=== PATIENT | female | born 1965 | race Caucasian/White ===

== ENCOUNTER 2024-03-02 09:51 | Emergency (ER) | payer BC, SELFPAY ==
[2024-03-02 09:55] VITALS: BP 111/81; PULSE 99; RESP 18; TEMP 38.9; O2SAT 94; BMI 23.9
--- NOTE | 2024-03-02 10:08 | ED.GENADULT ---
HPI - General Adult General Time Seen by Provider: 10:08 Date Seen: 03/02/24 Chief complaint: Cough Stated complaint: tired, cough, congestion Time Seen by Provider: 03/02/24 10:08 Source: patient Mode of arrival: ambulatory Limitations: no limitations History of Present Illness HPI narrative: Magali is a very pleasant 58-year-old female, daily tobacco user, history of hypertension rheumatoid arthritis currently on prednisone 5 mg daily who comes to the emergency room with fever and cough. Today is day 4 of cough like symptoms. Patient noted the onset of a cough which is continued associated with fever up to 102 at times. On day 1 of her illness she actually had some diarrhea overnight. That has since abated. She agrees that there may be some slight dysuria when she tries to urinate. She notes that she is prone to bronchitis and pneumonia a few times a year. She denies sore throat runny nose or unusual rash. She initially had some right ear pain and mild headache but this does not seem to be bothering her as much today. She feels that a nebulizer help somewhat at home. She does not know if the productive cough has colored sputum or not. Patient tried to go to work today but they sent her home. Related Data Home Medications ?Medication ?Instructions ?Recorded ?Confirmed albuterol sulfate 90 mcg/actuation 1 - 2 puff inhalation 03/02/24 aerosol inhaler cetirizine 10 mg tablet 10 mg PO DAILY 03/02/24 03/02/24 chlorthalidone 25 mg tablet 50 mg PO QAM 03/02/24 03/02/24 lisinopril 40 mg tablet 40 mg PO DAILY 03/02/24 03/02/24 loratadine 10 mg tablet 10 mg PO QPM 03/02/24 03/02/24 metoprolol succinate 100 mg PO 03/02/24 tablet,extended release 24 hr omeprazole 20 mg capsule,delayed 20 mg PO DAILY 03/02/24 03/02/24 release prednisone 1 mg tablet 1 mg PO DAILY 03/02/24 03/02/24 zolpidem 10 mg tablet 10 mg PO QPM 03/02/24 03/02/24 Allergies Allergy/AdvReac Type Severity Reaction Status Date / Time morphine Allergy Severe tachycardia Verified 03/02/24 09:58 naproxen Allergy Severe tachycardia Verified 03/02/24 09:58 Review of Systems Status of ROS: Reports: 10 or more systems reviewed and unremarkable except as noted in History and below Const: Reports: fever, chills and fatigue Eyes: Denies: change in vision or blurry vision ENMT: Denies: throat pain, neck pain, throat swelling, nasal discharge or nasal congestion Cardio: Denies: chest pain or shortness of breath with exertion Resp: Reports: cough and wheezing; Denies: shortness of breath GI: Reports: diarrhea; Denies: abdominal pain, nausea or vomiting : Reports: painful urination; Denies: urinary frequency or urinary urgency Musculo: Denies: back pain or neck pain Integ/Breast: Denies: rash Neuro: Reports: headache Endo: Reports: fatigue Allergy/Immuno: Reports: wheezing; Denies: throat swelling PFSH [facility] Social History Smoking Status: Former smoker Do you use any of these nicotine containing products: None Second hand tobacco smoke exposure: No How often do you have a drink containing alcohol: monthly or less How many standard drinks containing alcohol do you have on a typical day: 1 or 2 How often do you have six or more drinks on one occasion: Never AUDIT-C Alcohol total score: 1 Non-prescribed substance use: denies use Exam Narrative: Exam Narrative: Patient is alert and oriented. She is examined in room 2. She has a mask on. Her eyes are clear. Her TMs bilaterally without erythema. Removal of the mass shows no nasal drainage. Oral cavity with moist mucous membranes. No exudate in the posterior oropharynx. Neck is supple. Heart with a regular rate and rhythm. Lungs are with decreased breath sounds in the bases right greater than left. There is also wheezing right greater than left in the mid and upper aspects of the lungs. This is rather subtle. Abdomen is soft nontender. Lower extremities without edema and there is no swelling of the ankles. Moving all extremities. Nontoxic in appearance. Const: Vital Signs, click to edit/add: Vital Signs - 24 hr 03/02/24 09:55 Temperature 102.1 F H Pulse Rate [Pulse Oximeter] 99 Respiratory Rate 18 Blood Pressure [Ri ght Upper Arm] 111/81 Pulse Oximetry 94 Oxygen Delivery Me thod Room Air Documenting provider has reviewed patient's vital signs: yes Course Vital Signs Vital signs: Initial Vital Signs Temperature 102.1 F H 03/02/24 09:55 Temperature Source Temporal Artery Scan 03/02/24 09:55 Pulse Rate 99 03/02/24 09:55 Respiratory Rate 18 03/02/24 09:55 Blood Pressure 111/81 03/02/24 09:55 Blood Pressure Mean 91 03/02/24 09:55 Blood Pressure Position Sitting 03/02/24 09:55 Pulse Oximetry 94 03/02/24 09:55 Oxygen Delivery Method Room Air 03/02/24 09:55 Vital Signs Temperature 102.1 F H 03/02/24 09:55 Pulse Rate 99 03/02/24 09:55 Respiratory Rate 18 03/02/24 09:55 Blood Pressure 111/81 03/02/24 09:55 Pulse Oximetry 94 03/02/24 09:55 Oxygen Delivery Method Room Air 03/02/24 09:55 Temperature 102.1 F H 03/02/24 09:55 Pulse Rate 99 03/02/24 09:55 Respiratory Rate 18 03/02/24 09:55 Blood Pressure 111/81 03/02/24 09:55 Pulse Oximetry 94 03/02/24 09:55 Oxygen Delivery Method Room Air 03/02/24 09:55 Medical Decision Making MDM Narrative Medical decision making narrative: 1. Pneumonia-auscultatory findings as well as x-ray suggest pneumonia. Patient has tested negative for COVID influenza. Will treat with Augmentin 875 mg p.o. b.i.d. x7 days. Because she does have risk factor of tobacco use will add 2nd antibiotic Zithromax 500 mg today followed by 250 mg daily for 4 days. Have encouraged continued use of nebulizer or inhalers at home. Rest and push fluids. 2. Disposition-return for worsening symptom Lab Data Lab results reviewed: Yes I reviewed the patient's lab results Labs: Lab Results 03/02/24 Range/Units 10:07 SARS-CoV-2 (PCR) Negative SARS-CoV-2 (Negative) Influenza Type A (PCR) Negative PCR FLU A (Negative) Influenza Type B (PCR) Negative PCR FLU B (Negative) Imaging Data Chest x-ray: Attestation: I have reviewed the pertinent imaging results. My impression: By my read increased lung markings in the bases. Radiologist's impression: Top-normal size of the cardiomediastinal silhouette. Pulmonary vasculature is normal. Lungs are well inflated. Minimal airspace opacities at the right cardiophrenic angle and left lung base. No dense consolidation. No pleural effusion or pneumothorax. No acute osseous abnormality identified. Impression: Minimal bibasilar airspace opacities, which may represent atelectasis versus early/developing pneumonia. Recommend follow-up chest radiographs in 4-6 weeks to document resolution. Discharge Plan Discharge Clinical Impression: Pneumonia Patient Disposition: Home, Self-Care Condition: Unchanged Additional Instructions: Recommend Augmentin twice daily for 7 days. Zithromax will be daily for 5 days. Continue home nebulizers or inhalers. Seek medical attention for worsening symptoms and as needed. You are most likely contagious. Good handwashing and wear mask with others. Return to the emergency room as needed. Prescriptions: No Action cetirizine 10 mg tablet 10 mg PO DAILY metoprolol succinate 100 mg tablet extended release 24 hr PO chlorthalidone 25 mg tablet 50 mg PO QAM prednisone 1 mg tablet 1 mg PO DAILY omeprazole 20 mg capsule,delayed release(DR/EC) 20 mg PO DAILY zolpidem 10 mg tablet 10 mg PO QPM albuterol sulfate 90 mcg/actuation HFA aerosol inhaler 1 - 2 puff INHALATION lisinopril 40 mg tablet 40 mg PO DAILY loratadine 10 mg tablet 10 mg PO QPM Follow Up/Referrals: Provider,Not a Local [Primary Care Provider] - Stand Alone Forms: [employer] Info Instructions
--- NOTE | 2024-03-02 10:40 | CRLHL7_ITS ---
For Patients: As a result of the Century Cures Act, medical imaging exams and procedure reports are released immediately into your electronic medical record. You may view this report before your referring provider. If you have questions, please contact your health care provider. Indication: Cough, right-sided wheezing. Technique: One view(s) of the chest. Comparison: None available. Findings: Top-normal size of the cardiomediastinal silhouette. Pulmonary vasculature is normal. Lungs are well inflated. Minimal airspace opacities at the right cardiophrenic angle and left lung base. No dense consolidation. No pleural effusion or pneumothorax. No acute osseous abnormality identified. Impression: Minimal bibasilar airspace opacities, which may represent atelectasis versus early/developing pneumonia. Recommend follow-up chest radiographs in 4-6 weeks to document resolution. Dictated by Rosalba Jean Baptiste MD @ 03/02/2024 11:00:15 AM (Electronically Signed)
[2024-03-02 11:04] LABS: PCR FLU A Negative PCR FLU A (Negative); PCR FLU B Negative PCR FLU B (Negative); SARS PCR* Negative SARS-CoV-2 (Negative)
[2024-03-02 11:22] LABS: Appearance Urine Cloudy (Clear); Bilirubin Urine Negative (Negative); Blood Urine 2+ (Negative); Color Urine Yellow (Yellow); Glucose Urine Negative (Negative); Ketones Urine 1+ (Negative); Leukocyte Esterase Urine Trace (Negative); Nitrite Urine Positive (Negative); Protein Urine 1+ (Negative); Specific Gravity Urine 1.025 (1.000-1.030)
[2024-03-02 11:38] LABS: RBC Urine 0-2 (0-2); Squamous Epithelial Cell Urine Few (None-Few)
[2024-03-02 11:39] LABS: Bacteria Urine Many
== END 2024-03-02 12:00 | disposition home or self-care (01) ==
PROVIDERS: Emergency Provider Family Medicine
DX: R06.02 Shortness of breath (principal); E86.0 Dehydration
CPT/HCPCS: 71045; 81001; 87086; 87186; 87631; 99284

== ENCOUNTER 2024-03-04 12:11 | Inpatient (IN) | payer BC, SELFPAY ==
[2024-03-04] VITALS (22 sets, daily range): BP systolic 83–120; BP diastolic 57–80; PULSE 85–100; RESP 20–40; TEMP 36.9–38.3; O2SAT 90–97; BMI 23.9
--- NOTE | 2024-03-04 12:57 | CRLHL7_ITS ---
For Patients: As a result of the 21st Century Cures Act, medical imaging exams and procedure reports are released immediately into your electronic medical record. You may view this report before your referring provider. If you have questions, please contact your health care provider. Indication: COUGH, SOB, ABD PAIN, DIARRHEA Technique: CT of the chest, abdomen, and pelvis was obtained without intravenous contrast. Please note that all CT scans at this facility use dose modulation, iterative reconstruction, and/or weight-based dosing when appropriate to reduce radiation dose to as low as reasonably achievable. Comparison: Same day radiograph. Findings: CHEST: Medical devices: None. Thyroid: 0.8 centimeter hypoattenuating right thyroid nodule (2/8). No further imaging is recommended for incidental thyroid nodules measuring < 1.5 cm in an adult patient <= 35 years of age. Adapted from Consensus Recommendations, J Am Mirian Radiol 2015;12:143???150. Lymph nodes: Limited evaluation without IV contrast. No supraclavicular, axillary, mediastinal, or hilar lymphadenopathy. Vasculature: Limited evaluation without IV contrast. Aorta and main pulmonary artery diameters are within normal range. Heart: Normal. No pericardial effusion. Other mediastinal structures: Normal noncontrast appearance. Lung parenchyma and pleura: Mild scattered areas of centrilobular nodularity in the bilateral upper lobes. Mild paraseptal emphysema. Airways: No significant abnormality. Chest wall: No significant abnormality. ABDOMEN/PELVIS: Liver and biliary tree: Normal noncontrast appearance. Gallbladder: Normal Spleen: Normal noncontrast appearance. Pancreas: Normal noncontrast appearance. Adrenal glands: 1.3 centimeter left adrenal nodule measuring 13 HU (2/90). Kidneys and ureters: 1.8 centimeter left renal cyst (2/120). No hydronephrosis or obstructing renal calculi. Mild right renal cortical scarring. Gastrointestinal tract: Appendix is not definitively visualized. No evidence of bowel obstruction. Peritoneal cavity: Normal Bladder: Normal Pelvic organs: Status post hysterectomy. Vasculature: Mild calcification. Lymph nodes: Normal Abdominal wall: Normal Musculoskeletal: Mild multilevel degenerative changes of the visualized spine. Mild degenerative changes of the right hip. Chronic appearing healed right sacral fractures. Impression: 1. Mild scattered areas of centrilobular nodularity in the bilateral upper lobes may represent atypical infection or inflammation. 2. 1.3 centimeter left adrenal nodule measuring 13 HU. Consider outpatient adrenal protocol CT for further characterization. 3. No acute intra-abdominal abnormality. Please note that all CT scans at this facility use dose modulation, iterative reconstruction, and/or weight-based dosing when appropriate to reduce radiation dose to as low as reasonably achievable. Dictated by Romaine Andrea MD @ 03/04/2024 2:55:19 PM (Electronically Signed)
[2024-03-04] MEDS: 0.9 % SODIUM CHLORIDE 1000 ml 1,000 ML IV (13:01)
--- NOTE | 2024-03-04 13:02 | ED_ITS ---
HPI - General Adult General Date Seen: 03/04/24 Chief complaint: Shortness of Breath/Dyspnea Stated complaint: Low o2 stats, pneumonia Time Seen by Provider: 03/04/24 12:36 Source: patient and family Mode of arrival: ambulatory Limitations: no limitations History of Present Illness HPI narrative: Patient is a 58-year-old woman here with 2 daughters for re-evaluation after a diagnosis of pneumonia on March 02. She was seen here at that time, she did have a urine that was positive for pansensitive E coli, was not really having a lot for urinary symptoms, maybe a little bit of dysuria. She was having a lot of respiratory symptoms, shortness of breath, cough etcetera. She had had fevers up to 102. She was discharged on Augmentin. She followed up in clinic today and family says that her antibiotic was changed as she has not helped significant improvement, but they are not sure what it was changed to an she has not started that yet. They came in because they were told if her oxygen levels were low they should come back to the ER and they note that her oxygen levels at home were 83-88% today. She has been generally feeling weak, she lives with her son and and her daughters report that she has had trouble getting up out of bed by herself which is unusual. She had had some diarrhea that started around the same time as her respiratory symptoms, this has persisted. It is nonbloody. It is associated with some abdominal pain and distension. She has not had chest pain. She has not had unusual leg pain or swelling. She notes that fevers seem to have improved. She does smoke although she has says she does not smoke very much. She denies a prior history of asthma or COPD but she does have inhalers at home that she uses on a p.r.n. basis. She has not tried those. Does continue to smoke. Drinks occasionally. Related Data Home Medications ?Medication ?Instructions ?Recorded ?Confirmed albuterol sulfate 90 mcg/actuation 1 - 2 puff inhalation Q4H PRN 03/02/24 03/04/24 aerosol inhaler chlorthalidone 25 mg tablet 50 mg PO QAM 03/02/24 03/04/24 lisinopril 40 mg tablet 40 mg PO DAILY 03/02/24 03/04/24 loratadine 10 mg tablet 10 mg PO HS 03/02/24 03/04/24 metoprolol succinate 100 mg 300 mg PO DAILY 03/02/24 03/04/24 tablet,extended release 24 hr omeprazole 20 mg capsule,delayed 20 mg PO DAILY 03/02/24 03/04/24 release prednisone 1 mg tablet 1 mg PO QPM 03/02/24 03/04/24 zolpidem 10 mg tablet 10 mg PO HS 03/02/24 03/04/24 amoxicillin 875 mg-potassium 1 tab PO BID 03/04/24 03/04/24 clavulanate 125 mg tablet ascorbic acid (vitamin C) 500 mg 500 mg PO DAILY 03/04/24 03/04/24 tablet aspirin 81 mg tablet,delayed 81 mg PO DAILY 03/04/24 03/04/24 release (Adult Low Dose Aspirin) azithromycin 250 mg tablet See Rx Instructions PO .COMPLEX 03/04/24 03/04/24 ciprofloxacin HCl 500 mg tablet 500 mg PO BID 03/04/24 03/04/24 fluticasone propionate 50 2 spray intranasal DAILY PRN 03/04/24 03/04/24 mcg/actuation nasal spray,suspension multivitamin (One Daily 1 tab PO DAILY 03/04/24 03/04/24 Multivitamin tablet) Allergies Allergy/AdvReac Type Severity Reaction Status Date / Time morphine Allergy Severe tachycardia Verified 03/02/24 09:58 naproxen Allergy Severe tachycardia Verified 03/02/24 09:58 Review of Systems Status of ROS: Reports: 10 or more systems reviewed and unremarkable except as noted in History and below [facility] Medical History (Updated 03/04/24 @ 21:48 by Nazia Forrester MD) Fibromyalgia ?M79.7 - Fibromyalgia (ICD-10) Chronic pain ?G89.29 - Other chronic pain (ICD-10) Chronic insomnia ?F51.04 - Psychophysiologic insomnia (ICD-10) On prednisone therapy ?Z79.52 - nursing home (current) use of systemic steroids (ICD-10) Smoker ?F17.200 - Nicotine dependence, unspecified, uncomplicated (ICD-10) Essential hypertension ?I10 - Essential (primary) hypertension (ICD-10) Social History What is your current living situation?: I presently have a place to live Problems where you live: no known problems Problems where you live details: n/a In the past 12 months, utilities in danger of being shut off: declined to answer In past 12 months, lack of transportation kept you from medical appts, meetings, work, or getting things needed for daily living: declined to answer In the past 12 mos, have been you worried that your food would run out before you had money to buy more?: declined to answer In the past 12 mos, the food you bought just didn't last and you didn't have money to buy more?: declined to answer Highest level of school completed/degree received: 11th grade Smoking Status: Current some day smoker What tobacco products do you use: cigarettes Years smoked: 40 Do you use any of these nicotine containing products: None Second hand tobacco smoke exposure: No How often do you have a drink containing alcohol: 2-3 times a week Alcohol type: wine How many standard drinks containing alcohol do you have on a typical day: 1 or 2 How often do you have six or more drinks on one occasion: Never AUDIT-C Alcohol total score: 3 Non-prescribed substance use: denies use Caffeine: Yes (2 cups of coffee daily) How often does anyone, including family, friends and others, physically hurt you : never How often does anyone, including family, friends and others, insult or talk down to you: never How often does anyone, including family, friends and others, threaten you with harm: never How often does anyone, including family, friends and others, scream or curse at you: never service: No Exam Narrative: Exam Narrative: Vital signs as noted above. In general, an alert, nontoxic woman, mildly tachypneic, looks comfortable. Head: Normocephalic, atraumatic. Eyes: Pupils are equal reactive. Extraocular movements are full. Conjunctivae are normal. ENT: Mucous membranes are moist. Neck: Supple without lymphadenopathy. Heart: Borderline tachycardic, regular. No significant murmur. Lungs: Scattered wheezes bilaterally, no increased work of breathing aside from tachypnea. Abdomen: Mildly distended, soft. Bowel sounds present. Nontender to palpation without rebound guarding or rigidity. Extremities: Well perfused. No edema. No calf tenderness. Pulses intact. Neurologic: Patient is alert and oriented to person and place. Speech is fluent. Face is symmetric. Moves all extremities equally. Affect: Normal. Skin: Warm and dry. Well perfused. Const: Vital Signs, click to edit/add: Vital Signs - 24 hr 03/04/24 12:22 03/04/24 12:43 03/04/24 12:51 Temperature 99.0 F Pulse Rate 100 97 Pulse Rate [Pulse Oximeter] 100 Respiratory Rate 20 Blood Pressure 83/66 L 109/79 Blood Pressure [Le ft Upper Arm] 92/67 Blood Pressure [Ri ght Arm] Pulse Oximetry 92 96 [facility] 03/04/24 12:57 03/04/24 13:00 03/04/24 13:02 Temperature Pulse Rate 99 Pulse Rate [Pulse Oximeter] Respiratory Rate 40 H Blood Pressure 101/70 Blood Pressure [Le ft Upper Arm] Blood Pressure [Ri ght Arm] Pulse Oximetry 94 91 Oxygen Delivery Me od 03/04/24 13:23 03/04/24 13:32 03/04/24 13:53 Temperature Pulse Rate 93 95 Pulse Rate [Pulse Oximeter] Respiratory Rate 32 H Blood Pressure 114/73 120/80 Blood Pressure [Le ft Upper Arm] Blood Pressure [Ri ght Arm] Pulse Oximetry 97 96 Oxygen Delivery Me thod 03/04/24 14:00 03/04/24 14:01 03/04/24 14:31 Temperature Pulse Rate 93 95 98 Pulse Rate [Pulse Oximeter] Respiratory Rate Blood Pressure 118/75 110/71 Blood Pressure [Le ft Upper Arm] Blood Pressure [Ri ght Arm] Pulse Oximetry 93 93 92 Oxygen Delivery Me thod 03/04/24 15:01 03/04/24 15:15 03/04/24 15:42 Temperature Pulse Rate 98 98 97 Pulse Rate [Pulse Oximeter] Respiratory Rate Blood Pressure 106/59 L 102/71 Blood Pressure [Le ft Upper Arm] Blood Pressure [Ri ght Arm] Pulse Oximetry 92 90 93 Oxygen Delivery Me thod 03/04/24 15:45 03/04/24 16:00 03/04/24 16:02 Temperature 100.9 F H Pulse Rate 97 96 Pulse Rate [Pulse Oximeter] 92 Respiratory Rate 36 H Blood Pressure Blood Pressure [Le ft Upper Arm] Blood Pressure [Ri ght Arm] 109/71 Pulse Oximetry 92 90 92 Oxygen Delivery Me od Room Air 03/04/24 16:02 03/04/24 16:02 Temperature Pulse Rate 88 Pulse Rate [Pulse Oximeter] Respiratory Rate Blood Pressure Blood Pressure [Le ft Upper Arm] Blood Pressure [Ri ght Arm] Pulse Oximetry 94 Oxygen Delivery Me thod Documenting provider has reviewed patient's vital signs: yes Course Course ED Course: Following initial evaluation, an IV was placed, blood pressures were in the upper 80s to low 90s here, will give a L of normal saline to start. Records reviewed, I reviewed her x-ray which showed some mild changes in the right lower lung but no consolidation on the . I think today given totality of symptoms and failure to improve over a couple of days on antibiotics, question of urinary tract infection in addition to respiratory symptoms, abdominal pain, diarrhea, I am just going to get a CT scan of the chest to evaluate for pulmonary infection, pulmonary embolism, etcetera as well as a CT of the abdomen to look for colitis, pyelonephritis, diverticulitis, biliary disease or other possible contributing factors. DuoNeb and prednisone ordered as well. Ultimately patient had an additional albuterol neb, her wheezing and bronchospasm are improved, she says she feels better, lungs are clear an O2 sats remain in the 90s on room air. She does remain tachypneic however. Her labs were notable for a slightly depressed white blood cell count of 3.4, normal hemoglobin but thrombocytopenia with 52,000 platelets. Review of prior labs showed normal platelets as of last year. Metabolic panel is notable for sodium of 126, potassium of 3.2 and chloride of 88. CO2 was normal and her gap was also normal at 15. BUN elevated at 63, creatinine of 2.6. This was normal last year as well. Lactate was elevated at 2.6 initially, repeat was 1.7. LFTs notable for an AST of 139 an ALT of 73, baseline unknown. Total bilirubin was normal at 0.8, direct was 0.7 which was mildly elevated. CRP markedly elevated at 26. BNP fairly unremarkable at 500. Point of care troponin was 0.04. EKG done on arrival showed a sinus rhythm, ventricular rate of 97. No acute ST segment changes. My plan had been to do a CT scan with contrast, but because of her creatinine, I did a noncontrast CT of the chest abdomen pelvis. I do not see any consolidative infiltrate in the chest and I did not see any significant findings in the abdomen. Final radiology read as follows:Findings: CHEST: Medical devices: None. Thyroid: 0.8 centimeter hypoattenuating right thyroid nodule (2/8). No further imaging is recommended for incidental thyroid nodules measuring < 1.5 cm in an adult patient <= 35 years of age. Adapted from Consensus Recommendations, J Am Mirian Radiol 2015;12:143?150. Lymph nodes: Limited evaluation without IV contrast. No supraclavicular, axillary, mediastinal, or hilar lymphadenopathy. Vasculature: Limited evaluation without IV contrast. Aorta and main pulmonary artery diameters are within normal range. Heart: Normal. No pericardial effusion. Other mediastinal structures: Normal noncontrast appearance. Lung parenchyma and pleura: Mild scattered areas of centrilobular nodularity in the bilateral upper lobes. Mild paraseptal emphysema. Airways: No significant abnormality. Chest wall: No significant abnormality. ABDOMEN/PELVIS: Liver and biliary tree: Normal noncontrast appearance. Gallbladder: Normal Spleen: Normal noncontrast appearance. Pancreas: Normal noncontrast appearance. Adrenal glands: 1.3 centimeter left adrenal nodule measuring 13 HU (2/90). Kidneys and ureters: 1.8 centimeter left renal cyst (2/120). No hydronephrosis or obstructing renal calculi. Mild right renal cortical scarring. Gastrointestinal tract: Appendix is not definitively visualized. No evidence of bowel obstruction. Peritoneal cavity: Normal Bladder: Normal Pelvic organs: Status post hysterectomy. Vasculature: Mild calcification. Lymph nodes: Normal Abdominal wall: Normal Musculoskeletal: Mild multilevel degenerative changes of the visualized spine. Mild degenerative changes of the right hip. Chronic appearing healed right sacral fractures. Impression: 1. Mild scattered areas of centrilobular nodularity in the bilateral upper lobes may represent atypical infection or inflammation. 2. 1.3 centimeter left adrenal nodule measuring 13 HU. Consider outpatient adrenal protocol CT for further characterization. 3. No acute intra-abdominal abnormality. When patient was going to CT scan and was in a wheelchair, I noted that she had of fairly prominent head shaking tremor. I asked her about this, she feels that that is been there for awhile, she is not exactly sure how long but it is probably worse over the past couple of days. Her daughters have just noticed it over the past couple of days. She denies any other tremor. Has not had any focal neurologic complaints. Overall, etiology of her symptoms is somewhat unclear. With depressed white blood cell count and absent very significant findings on CT, this may be a viral process. Another consideration would be tick-borne illness with thrombocytopenia, elevated LFTs an ongoing fever. I did do a venous gas, this was normal. Overall, I think patient would benefit from admission to the hospital for further hydration, trending of creatinine and platelets, will treat with Rocephin and a dose of doxycycline. Discussed with hospitalist. Vital Signs Vital signs: Initial Vital Signs Temperature 99.0 F 03/04/24 12:22 Temperature Source Temporal Artery Scan 03/04/24 12:22 Pulse Rate 100 03/04/24 12:22 Respiratory Rate 20 03/04/24 12:22 Blood Pressure 92/67 03/04/24 12:22 Blood Pressure Mean 75 03/04/24 12:22 Blood Pressure Position Sitting 03/04/24 12:22 Pulse Oximetry 92 03/04/24 12:22 Oxygen Delivery Method Room Air 03/04/24 12:22 Vital Signs Temperature 99.0 F 03/04/24 12:22 Pulse Rate 100 03/04/24 12:22 Respiratory Rate 20 03/04/24 12:22 Blood Pressure 92/67 03/04/24 12:22 Pulse Oximetry 92 03/04/24 12:22 Oxygen Delivery Method Room Air 03/04/24 12:22 Temperature 100.9 F H 03/04/24 16:33 Pulse Rate 92 03/04/24 16:33 Respiratory Rate 36 H 03/04/24 16:33 Blood Pressure 109/71 03/04/24 16:33 Pulse Oximetry 92 03/04/24 16:33 Oxygen Delivery Method Room Air 03/04/24 16:33 Medications Administered Medications: Generic Name Dose Route Start Last Admin Trade Name Freq PRN Reason Stop Dose Admin Albuterol/Ipratropium 1 neb 03/04/24 18:00 03/04/24 18:41 Iprat-Albut 0.5-2.5 Mg/3 Ml Neb IH 1 neb Q6H JEAN Administration Budesonide 0.5 mg 03/04/24 19:00 03/04/24 19:09 Budesonide 0.5 Mg/2ml Neb NEB 0.5 mg Q12H JEAN Administration Sodium Chloride 1,000 mls @ 150 mls/hr 03/04/24 17:19 03/04/24 21:03 0.9 % Sodium Chloride 1000 Ml IV 150 mls/hr .Q6H40M JEAN Administration Potassium Chloride 10 meq in 100 mls @ 100 mls/hr 03/04/24 20:30 03/04/24 22:16 Potassium Chloride IVPB 03/05/24 01:59 100 mls/hr Q90M JEAN Administration Sodium Chloride 5 ml 03/04/24 21:00 03/04/24 20:42 Sodium Chloride 0.9 % (Flush) 10 Ml Syringe IVF Not Given BID JEAN Zolpidem Tartrate 10 mg 03/04/24 21:00 03/04/24 20:36 Zolpidem 5 Mg Tablet PO 10 mg HS JEAN Administration Discontinued Medications Generic Name Dose Route Start Last Admin Trade Name Freq PRN Reason Stop Dose Admin Albuterol 2.5 mg 03/04/24 14:44 03/04/24 13:20 Albuterol Sulfate 2.5 Mg/3 Ml Vial.[facility] 03/04/24 14:45 2.5 mg ONCE ONE Administration Albuterol/Ipratropium 1 [facility] 03/04/24 12:56 03/04/24 13:10 Iprat-Albut 0.5-2.5 Mg/3 Ml Neb 03/04/24 12:57 1 neb ONCE ONE Administration Doxycycline Hyclate 200 mg 03/04/24 15:18 03/04/24 16:09 Doxycycline Hyclate 100 Mg PO 03/04/24 15:19 200 mg ONCE ONE Administration Sodium Chloride 1,000 mls @ 1,000 mls/hr 03/04/24 13:00 03/04/24 14:01 0.9 % Sodium Chloride 1000 Ml IV 03/04/24 13:59 Infused .Q1H JEAN Infusion Ceftriaxone Sodium 1 gm/ 100 mls @ 200 mls/hr 03/04/24 15:13 03/04/24 15:45 Sodium Chloride IVPB 03/04/24 15:14 200 mls/hr ONCE ONE Administration Sodium Chloride 1,000 mls @ 500 mls/hr 03/04/24 17:30 03/04/24 18:35 0.9 % Sodium Chloride 1000 Ml IV 03/04/24 19:29 500 mls/hr .Q2H JEAN Administration Prednisone 60 mg 03/04/24 12:56 03/04/24 13:10 Prednisone 20 Mg Tablet PO 03/04/24 12:57 60 mg ONCE ONE Administration Medical Decision Making Lab Data Labs: Lab Results 03/04/24 03/04/24 03/04/24 Range/Units 12:40 12:58 14:44 WBC 3.37 L (4.50-11.00) K/uL RBC 5.15 (4.00-5.20) m/uL Hgb 15.9 (12.0-16.0) gm/dL Hct 45.0 (33.0-51.0) % MCV 87 (80-100) fL MCH 31 (26-34) pg MCHC 35 (32-36) gm/dL RDW Coeff of Nikole 12.3 (11.5-15.5) % Plt Count 52 L (140-440) K/uL Neut % (Auto) 86.9 H (42.0-72.0) % Lymph % (Auto) 9.5 L (20-44) % [place] % (Auto) 3.0 (0.0-11.0) % Eos % (Auto) 0.0 (0.0-7.0) % Baso % (Auto) 0.3 (0.0-3.0) % Neut # (Auto) 2.90 (1.7-7.0) K/uL Lymph # (Auto) 0.30 L (0.90-2.90) K/uL [place] # (Auto) 0.10 (0.00-0.90) K/UL Eos # (Auto) 0.00 (0.00-0.50) K/uL Baso # (Auto) 0.00 (0.00-0.30) K/uL Abs Immat Gran (auto) 0.00 (0.00-0.30) K/uL Imm/Tot Granulo (auto) 0.3 % INR 0.88 L (0.91-1.10) APTT 42 H (23-33) Seconds D-Dimer Quant (PE/DVT) > 20.00 H (0.00-0.50) ug/ml VBG pH 7.344 (7.32-7.43) VBG pCO2 45 (40-50) mmHG VBG pO2 < 30.1 (25-47) mmHG VBG HCO3 25 (21-28) mmol/L Sodium 126 L (135-149) mmol/L Potassium 3.2 L (3.6-5.1) mmol/L Chloride 88 L (96-114) mmol/L Carbon Dioxide 23 (20-32) mmol/L Anion Gap 15 (7-15) mEq/L BUN 63 H (7-30) mg/dL Creatinine 2.6 H (0.5-1.5) mg/dL Estimated Creat Clear 19.03 Estimated GFR 20 ml/min Glucose 99 (60-115) mg/dL Lactate 2.6 H (0.5-1.9) mmol/L Calcium 8.5 (8.4-10.6) mg/dL Magnesium 2.4 (1.5-2.6) mg/dL Total Bilirubin 0.8 (0.1-1.5) mg/dL Direct Bilirubin 0.7 H (0.0-0.5) mg/dL AST 139 H (12-35) U/L ALT 73 H (4-35) U/L Alkaline Phosphatase 82 (40-150) U/L C-Reactive Protein 26.3 H (0.5-1.0) mg/dL NT-Pro-B Natriuret Pep 555 pg/mL Total Protein 7.2 (6.0-8.3) g/dL Albumin 4.5 (3.3-5.0) g/dL Procalcitonin 3.75 H (<0.50) ng/mL TSH 0.259 L (0.270-4.20) uIU/mL Free T4 1.22 (0.70-1.85) ng/dL Ur Random Creatinine 71 mg/dL Ur Random Sodium 15 Ur Random Potassium 60.1 Lab Acknowledgement POC Troponin I 0.04 (0.01-0.04) ng/ml 03/04/24 03/04/24 Range/Units 15:10 16:02 WBC (4.50-11.00) K/uL RBC (4.00-5.20) m/uL Hgb (12.0-16.0) gm/dL Hct (33.0-51.0) % MCV (80-100) fL MCH (26-34) pg MCHC (32-36) gm/dL RDW Coeff of Nikole (11.5-15.5) % Plt Count (140-440) K/uL Neut % (Auto) (42.0-72.0) % Lymph % (Auto) (20-44) % [place] % (Auto) (0.0-11.0) % Eos % (Auto) (0.0-7.0) % Baso % (Auto) (0.0-3.0) % Neut # (Auto) (1.7-7.0) K/uL Lymph # (Auto) (0.90-2.90) K/uL [place] # (Auto) (0.00-0.90) K/UL Eos # (Auto) (0.00-0.50) K/uL Baso # (Auto) (0.00-0.30) K/uL Abs Immat Gran (auto) (0.00-0.30) K/uL Imm/Tot Granulo (auto) % INR (0.91-1.10) APTT (23-33) Seconds D-Dimer Quant (PE/DVT) (0.00-0.50) ug/ml VBG pH (7.32-7.43) VBG pCO2 (40-50) mmHG VBG pO2 (25-47) mmHG VBG HCO3 (21-28) mmol/L Sodium (135-149) mmol/L Potassium (3.6-5.1) mmol/L Chloride (96-114) mmol/L Carbon Dioxide (20-32) mmol/L Anion Gap (7-15) mEq/L BUN (7-30) mg/dL Creatinine (0.5-1.5) mg/dL Estimated Creat Clear Estimated GFR ml/min Glucose (60-115) mg/dL Lactate 1.7 (0.5-1.9) mmol/L Calcium (8.4-10.6) mg/dL Magnesium (1.5-2.6) mg/dL Total Bilirubin (0.1-1.5) mg/dL Direct Bilirubin (0.0-0.5) mg/dL AST (12-35) U/L ALT (4-35) U/L Alkaline Phosphatase (40-150) U/L C-Reactive Protein (0.5-1.0) mg/dL NT-Pro-B Natriuret Pep pg/mL Total Protein (6.0-8.3) g/dL Albumin (3.3-5.0) g/dL Procalcitonin (<0.50) ng/mL TSH (0.270-4.20) uIU/mL Free T4 (0.70-1.85) ng/dL Ur Random Creatinine mg/dL Ur Random Sodium Ur Random Potassium Lab Acknowledgement Test Added POC Troponin I (0.01-0.04) ng/ml Discharge Plan Discharge Patient Disposition: Admitted As Observation
[2024-03-04] MEDS: predniSONE 20 MG TABLET 60 MG PO (13:10)
[2024-03-04] MEDS: IPRAT-ALBUT 0.5-2.5 MG/3 ML NEB 1 NEB IH ×2 (13:10→18:41)
[2024-03-04] MEDS: ALBUTEROL SULFATE 2.5 MG/3 ML VIAL.NEB NEB (13:20)
[2024-03-04 13:31] LABS: Troponin, Point-of-Care* 0.04 ng/ml (0.01-0.04)
--- NOTE | 2024-03-04 13:32 | RESP.RT ---
Asked to see pt by RN. Pt on RA, SPO2 93-95% RR regular and easy. BBS decreased with scattered expiratory wheezing. Suzi stated by RN, followed up by 2.5 mg of albuterol, given by me. Pts aeration greatly improved. Pt with harsh strong [employer] cough. scattered wheezing remains. Noted that pt is having difficulty finding words, and she is aware of that. Difficulty completing thoughts and answering questions.
[2024-03-04 13:33] LABS: PCO2 VBG 45 mmHG (40-50); pH VBG 7.344 (7.32-7.43)
[2024-03-04 13:34] LABS: HCO3 VBG 25 mmol/L (21-28); Lactate Sepsis w/Reflex* 2.6 mmol/L (0.5-1.9); PO2 VBG < 30.1 mmHG (25-47)
[2024-03-04 13:35] LABS: Basophils Percent Auto 0.3 % (0.0-3.0); Hemoglobin* 15.9 gm/dL (12.0-16.0); Immature Granulocytes Pct Auto 0.3 %; Lymphocytes Percent Auto 9.5 % (20-44); Mean Corpuscular HGB Conc 35 gm/dL (32-36); Mean Corpuscular Hemoglobin 31 pg (26-34); Mean Corpuscular Volume 87 fL (80-100); Neutrophils Percent Auto 86.9 % (42.0-72.0); Platelet Count* 52 K/uL (140-440); RDW Coefficient of Variation % 12.3 % (11.5-15.5); Red Blood Count 5.15 m/uL (4.00-5.20); White Blood Count* 3.37 K/uL (4.50-11.00)
[2024-03-04 13:38] LABS: Slide Review Reflex No
[2024-03-04 13:47] LABS: Chloride* 88 mmol/L (96-114); Potassium* 3.2 mmol/L (3.6-5.1); Sodium* 126 mmol/L (135-149)
[2024-03-04 13:48] LABS: Albumin* 4.5 g/dL (3.3-5.0)
[2024-03-04 13:50] LABS: Creatinine* 2.6 mg/dL (0.5-1.5); Est. Creatinine Clearance* 19.03; Estimated Glomerular Filt Rate 20 ml/min
[2024-03-04 13:51] LABS: Anion Gap 15 mEq/L (7-15); Blood Urea Nitrogen* 63 mg/dL (7-30); Calcium* 8.5 mg/dL (8.4-10.6); Carbon Dioxide* 23 mmol/L (20-32); Glucose* 99 mg/dL (60-115)
[2024-03-04 13:52] LABS: Alanine Aminotransferase* 73 U/L (4-35); Alkaline Phosphatase* 82 U/L (40-150); Aspartate Amino Transferase* 139 U/L (12-35); Bilirubin Direct* 0.7 mg/dL (0.0-0.5); Bilirubin Total* 0.8 mg/dL (0.1-1.5); Magnesium* 2.4 mg/dL (1.5-2.6); Total Protein* 7.2 g/dL (6.0-8.3)
[2024-03-04 14:01] LABS: NT Pro B Type NatriureticPept* 555 pg/mL
[2024-03-04 14:09] LABS: C Reactive Protein* 26.3 mg/dL (0.5-1.0)
--- NOTE | 2024-03-04 14:45 | CRLHL7_ITS ---
For Patients: As a result of the Cures Act, medical imaging exams and procedure reports are released immediately into your electronic medical record. You may view this report before your referring provider. If you have questions, please contact your health care provider. Indication Shortness of breath, contrast allergy Technique Venous duplex ultrasound of the bilateral lower extremities utilizing compression with grayscale and color and spectral Doppler. Comparison None Findings There is no sonographic evidence of deep vein thrombosis in the bilateral common femoral, deep femoral, superficial femoral, popliteal, posterior tibial or peroneal veins. There is no visualized superficial vein thrombosis. The soft tissues are unremarkable. Impression No deep vein thrombosis in the bilateral lower extremities. Dictated by Toney España MD @ 03/04/2024 4:32:21 PM (Electronically Signed)
[2024-03-04 15:15] LABS: Lactate Sepsis 2 Hour 1.7 mmol/L (0.5-1.9)
[2024-03-04] MEDS: cefTRIAXone 1 GM in 0.9 % SODIUM CHLORIDE Mini-bag 100 ML IVPB (15:45)
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
[2024-03-04] MEDS: DOXYCYCLINE HYCLATE 100 MG 200 MG PO (16:09)
[2024-03-04 17:35] LABS: D Dimer Quantitative* > 20.00 ug/ml (0.00-0.50)
[2024-03-04 17:49] LABS: Procalcitonin* 3.75 ng/mL (<0.50)
[2024-03-04 18:04] LABS: Thyroid Stimulating Hormone* 0.259 uIU/mL (0.270-4.20)
[2024-03-04] MEDS: 0.9 % SODIUM CHLORIDE 1000 ml 1,000 ML 500 ML IV (18:35)
[2024-03-04] MEDS: BUDESONIDE 0.5 MG/2ML NEB NEB (19:09)
[2024-03-04 19:31] LABS: Legionella pneumo Ag Urine L. pneumo Negative (Negative); S pneumo Ag Urine S. pneumo Negative (Negative)
[2024-03-04 19:41] LABS: C.Difficile Negative (Negative); CDIFFEPI 027 PRESUMPTIVE NEGATIVE (Negative)
[2024-03-04 19:41] LABS: INR 0.88 (0.91-1.10); Prothrombin Time 12.4 Seconds
[2024-03-04 19:42] LABS: Partial Thromboplastin Time* 42 Seconds (23-33)
[2024-03-04 19:50] LABS: Potassium Urine Random* 60.1; Sodium Urine Random* 15
[2024-03-04 20:05] LABS: Free T4 Free Thyroxine* 1.22 ng/dL (0.70-1.85)
[2024-03-04 20:10] LABS: Chloride* 94 mmol/L (96-114)
[2024-03-04 20:11] LABS: Albumin* 3.4 g/dL (3.3-5.0); Sodium* 126 mmol/L (135-149)
[2024-03-04 20:13] LABS: Anion Gap 13 mEq/L (7-15); Carbon Dioxide* 19 mmol/L (20-32); Creatinine* 2.2 mg/dL (0.5-1.5); Est. Creatinine Clearance* 22.49; Estimated Glomerular Filt Rate 25 ml/min
[2024-03-04 20:14] LABS: Blood Urea Nitrogen* 59 mg/dL (7-30); Calcium* 7.3 mg/dL (8.4-10.6); Glucose* 211 mg/dL (60-115); Phosphorus* 4.8 mg/dL (2.5-4.5)
[2024-03-04 20:17] LABS: Potassium* 2.8 mmol/L (3.6-5.1)
[2024-03-04] MEDS: ZOLPIDEM 5 MG TABLET 10 MG PO (20:36)
[2024-03-04] MEDS: 0.9 % SODIUM CHLORIDE 1000 ml 1,000 ML 150 ML IV (21:03)
[2024-03-04] MEDS: POTASSIUM CHLORIDE 10 MEQ/100 ML PIGGYBACK 100 MEQ IVPB ×3 (21:03→23:15)
[2024-03-04 22:50] LABS: Creatinine Urine Random 71 mg/dL
[2024-03-05] VITALS (12 sets, daily range): BP systolic 100–119; BP diastolic 54–89; PULSE 76–100; RESP 18–22; TEMP 36.5–37; O2SAT 90–96
[2024-03-05] MEDS: POTASSIUM CHLORIDE 10 MEQ/100 ML PIGGYBACK 100 MEQ IVPB (00:04)
[2024-03-05] MEDS: IPRAT-ALBUT 0.5-2.5 MG/3 ML NEB 1 NEB IH ×4 (00:07→17:22)
[2024-03-05] MEDS: 0.9 % SODIUM CHLORIDE 1000 ml 1,000 ML 150 ML IV ×3 (03:54→19:20)
--- NOTE | 2024-03-05 05:38 | PC.NURSE ---
[id number] Pt needs very close 1A with walker GB while ambulating, she is very unsteady on her feet. intermittent cough present, denies coughing up phlegm, still need a sputum sample. able to maintain sats >90% on RA. afebrile during shift, continues to have watery diarrhea, raw bottom present, barrier cream applied PRN.
[2024-03-05] MEDS: OMEPRAZOLE 20 MG CAPSULE DR PO (06:14)
[2024-03-05] MEDS: BUDESONIDE 0.5 MG/2ML NEB NEB ×2 (06:14→18:50)
[2024-03-05 06:40] LABS: HCO3 VBG 21 mmol/L (21-28); Ionized Calcium* 1.01 mmol/L (1.11-1.30); PCO2 VBG 41 mmHG (40-50); PO2 VBG 33.6 mmHG (25-47); pH VBG 7.321 (7.32-7.43)
[2024-03-05 06:49] LABS: Mean Corpuscular HGB Conc 35 gm/dL (32-36); Mean Corpuscular Hemoglobin 31 pg (26-34); Mean Corpuscular Volume 88 fL (80-100)
[2024-03-05 07:15] LABS: Albumin* 3.4 g/dL (3.3-5.0); Chloride* 104 mmol/L (96-114)
[2024-03-05 07:16] LABS: Potassium* 3.1 mmol/L (3.6-5.1); Sodium* 133 mmol/L (135-149)
[2024-03-05 07:18] LABS: Creatinine* 1.6 mg/dL (0.5-1.5); Est. Creatinine Clearance* 30.93; Estimated Glomerular Filt Rate 37 ml/min
[2024-03-05 07:19] LABS: Alanine Aminotransferase* 68 U/L (4-35); Alkaline Phosphatase* 65 U/L (40-150); Anion Gap 10 mEq/L (7-15); Aspartate Amino Transferase* 122 U/L (12-35); Bilirubin Direct* 0.5 mg/dL (0.0-0.5); Bilirubin Total* 0.5 mg/dL (0.1-1.5); Blood Urea Nitrogen* 52 mg/dL (7-30); Calcium* 7.6 mg/dL (8.4-10.6); Carbon Dioxide* 19 mmol/L (20-32); Glucose* 158 mg/dL (60-115); Phosphorus* 3.1 mg/dL (2.5-4.5)
[2024-03-05 07:20] LABS: Magnesium* 2.4 mg/dL (1.5-2.6)
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
[2024-03-05 07:45] LABS: C Reactive Protein* 18.9 mg/dL (0.5-1.0)
[2024-03-05] MEDS: predniSONE 20 MG TABLET 60 MG PO (07:55)
[2024-03-05 08:14] LABS: Red Blood Count 4.48 m/uL (4.00-5.20)
[2024-03-05 08:15] LABS: Hematocrit 39.5 % (33.0-51.0); Hemoglobin* 13.7 gm/dL (12.0-16.0); Lymphocytes Percent Auto 24.7 % (20-44); Monocytes Percent Auto 5.7 % (0.0-11.0); Neutrophils Percent Auto 69.6 % (42.0-72.0); Platelet Count* 52 K/uL (140-440); RDW Coefficient of Variation % 12.8 % (11.5-15.5); White Blood Count* 2.53 K/uL (4.50-11.00)
[2024-03-05 08:16] LABS: Slide Review Reflex Yes
[2024-03-05 08:18] LABS: Slide Review Acceptable Review (Acceptable)
[2024-03-05] MEDS: ASPIRIN 81 MG TABLET EC PO (09:03)
[2024-03-05] MEDS: DOXYCYCLINE HYCLATE 100 MG PO ×2 (09:03→20:24)
[2024-03-05] MEDS: cefTRIAXone 1 GM in 0.9 % SODIUM CHLORIDE Mini-bag 100 ML IVPB (09:03)
--- NOTE | 2024-03-05 09:09 | CRLHL7_ITS ---
For Patients: As a result of the Century Cures Act, medical imaging exams and procedure reports are released immediately into your electronic medical record. You may view this report before your referring provider. If you have questions, please contact your health care provider. INDICATION: Tremor. Slurred speech. Word finding difficulty. COMPARISON: April 16, 2011 TECHNIQUE: CT examination of the head was performed as axial sections without intravenous contrast. Images were obtained from the vertex of the skull through the skull base. Please note that all CT scans at this facility use dose modulation, iterative reconstruction, and/or weight-based dosing when appropriate to reduce radiation dose to as low as reasonably achievable. FINDINGS: The brain shows no sign of mass lesion, mass effect, hemorrhage, or edema. There are involutional changes. There is mild to moderate cortical atrophy and there is mild to moderate white matter disease. There is no hydrocephalus. The involutional changes have somewhat worsened since the prior study. The visualized portions of the orbits are normal in appearance. The osseous structures are normal in appearance with no sign of abnormality in the skull base or calvarium. IMPRESSION: Involutional changes. No acute-appearing findings. Please note that all CT scans at this facility use dose modulation, iterative reconstruction, and/or weight-based dosing when appropriate to reduce radiation dose to as low as reasonably achievable. Dictated by Sloan Hines MD @ 03/05/2024 9:37:44 AM (Electronically Signed)
[2024-03-05 09:27] LABS: Procalcitonin* 3.06 ng/mL (<0.50)
[2024-03-05] MEDS: POTASSIUM CHLORIDE 10 MEQ CAPSULE ER 20 MEQ PO (17:22)
--- NOTE | 2024-03-05 19:39 | PC.NURSE ---
End of Shift: Patient pleasant and cooperative. A&O. VSS, afebrile. Patient has had an intermittent cough throughout the day. Patient denies pain this shift. Patient did have watery diarrhea this shift. Fluid restriction of 1800. 1A walker and gait belt to bathroom.
[2024-03-05] MEDS: ZOLPIDEM 5 MG TABLET 10 MG PO (20:24)
[2024-03-05] MEDS: SODIUM CHLORIDE 0.9 % (FLUSH) 10 ML SYRINGE 5 ML IVF (20:25)
[2024-03-05] MEDS: ACETAMINOPHEN 325 MG TABLET PO (22:43)
[2024-03-05] MEDS: MELATONIN 3 MG TABLET PO (22:44)
[2024-03-05] MEDS: LOPERAMIDE HCL 2 MG CAPSULE PO (22:44)
[2024-03-06] VITALS (12 sets, daily range): BP systolic 104–140; BP diastolic 50–93; PULSE 85–106; RESP 18–20; TEMP 36.5–36.9; O2SAT 92–96
[2024-03-06] MEDS: 0.9 % SODIUM CHLORIDE 1000 ml 1,000 ML 150 ML IV (02:10)
[2024-03-06] MEDS: BUDESONIDE 0.5 MG/2ML NEB NEB ×2 (06:05→18:50)
[2024-03-06] MEDS: IPRAT-ALBUT 0.5-2.5 MG/3 ML NEB 1 NEB IH ×3 (06:05→17:20)
[2024-03-06] MEDS: OMEPRAZOLE 20 MG CAPSULE DR PO (06:05)
[2024-03-06 06:25] LABS: Hematocrit 33.1 % (33.0-51.0); Hemoglobin* 11.6 gm/dL (12.0-16.0); Mean Corpuscular HGB Conc 35 gm/dL (32-36); Mean Corpuscular Hemoglobin 31 pg (26-34); Mean Corpuscular Volume 88 fL (80-100); Platelet Count* 64 K/uL (140-440); Red Blood Count 3.78 m/uL (4.00-5.20); White Blood Count* 7.77 K/uL (4.50-11.00)
[2024-03-06 06:36] LABS: Slide Review Reflex No
[2024-03-06 06:50] LABS: Albumin* 2.9 g/dL (3.3-5.0); Chloride* 112 mmol/L (96-114)
[2024-03-06 06:51] LABS: Sodium* 136 mmol/L (135-149)
[2024-03-06 07:06] LABS: Potassium* 2.9 mmol/L (3.6-5.1)
[2024-03-06 07:07] LABS: Anion Gap 7 mEq/L (7-15); Carbon Dioxide* 17 mmol/L (20-32)
[2024-03-06 07:08] LABS: Aspartate Amino Transferase* 62 U/L (12-35); Bilirubin Direct* 0.3 mg/dL (0.0-0.5); Bilirubin Total* 0.3 mg/dL (0.1-1.5); Blood Urea Nitrogen* 29 mg/dL (7-30); Calcium* 7.9 mg/dL (8.4-10.6); Creatinine* 1.3 mg/dL (0.5-1.5); Est. Creatinine Clearance* 38.07; Estimated Glomerular Filt Rate 47 ml/min; Glucose* 152 mg/dL (60-115); Total Protein* 5.2 g/dL (6.0-8.3)
[2024-03-06 07:09] LABS: Alanine Aminotransferase* 42 U/L (4-35); Alkaline Phosphatase* 60 U/L (40-150)
[2024-03-06] MEDS: predniSONE 20 MG TABLET 60 MG PO (08:02)
[2024-03-06] MEDS: POTASSIUM CHLORIDE 10 MEQ CAPSULE ER 20 MEQ PO ×2 (08:02→17:20)
[2024-03-06 09:01] LABS: Magnesium* 2.2 mg/dL (1.5-2.6)
[2024-03-06] MEDS: DOXYCYCLINE HYCLATE 100 MG PO ×2 (09:03→20:58)
[2024-03-06] MEDS: ASPIRIN 81 MG TABLET EC PO (09:03)
[2024-03-06] MEDS: SODIUM CHLORIDE 0.9 % (FLUSH) 10 ML SYRINGE 5 ML IVF ×2 (09:04→20:59)
[2024-03-06] MEDS: cefTRIAXone 1 GM in 0.9 % SODIUM CHLORIDE Mini-bag 100 ML IVPB (09:04)
--- NOTE | 2024-03-06 09:09 | CRLHL7_ITS ---
For Patients: As a result of the Century Cures Act, medical imaging exams and procedure reports are released immediately into your electronic medical record. You may view this report before your referring provider. If you have questions, please contact your health care provider. INDICATION: Slurred speech. Tremors. TECHNIQUE: Brain MRI without contrast. COMPARISON: Head CT from 03/05/2024. FINDINGS: No evidence of acute ischemia. No evidence of acute or chronic intracranial blood products. Patchy FLAIR hyperintensities within the supratentorial white matter and brainstem, typical for chronic microvascular ischemic change. No mass effect or herniation. No hydrocephalus or extra-axial collections. The pituitary gland, parasellar structures and optic chiasm are normal. Posterior fossa is normal. All the major intracranial vascular structures demonstrate normal flow-related signal. The orbital contents are normal. No calvarial or skull base marrow replacing process. No obstructive sinus disease. No extracranial soft tissue findings. IMPRESSION: 1. No acute infarction or other acute intracranial pathology. 2. Mild chronic microvascular ischemic changes. Dictated by Stanislav Johnson MD @ 03/06/2024 12:37:55 PM (Electronically Signed)
[2024-03-06] MEDS: ACETAMINOPHEN 325 MG TABLET PO ×2 (13:56→20:01)
--- NOTE | 2024-03-06 14:41 | P.IMPN_ITS ---
Progress Note: A&P Assessment and plan (1) Atypical pneumonia: Problem details: -on 03/02/24 pt started on Augmentin and azithromycin -saw Dr. Mai on 03/04 - rx'd for cipro sent (pt did not picker and sorter load and unload) -03/04/24 -Rocephin 1 gram QD and doxy 100mg BID -reviewed imaging: atypical findings -prednisone 60mg daily (previously has been on 1 mg daily for plantar fasciitis) -Resp PCR panel sent to [facility] - remains pending -Lyme panel negative -strep pneumo/legionella negative -blood culture no growth, lactate normalized, procalcitonin trending down still >3, CRP trending down, recheck in am -03/06 WBC wnl, afebrile for over 24 hours -MRSA negative -not hypoxic, continue nebs, aerobika, incentive spirometer, monitor; not hypotensive - Continue rocephin, doxycycline, prednisone Status: Acute (2) Alteration in neurological status: Problem details: - reports difficulty word finding, occasional intermittent slurring words over past week. Tremor of head x1 month - CT head shows involutional changes worsened since prior study in 2010, no acute appearing findings. Crgm-xn-[id number] cortical atrophy and there is mild to moderate white matter disease. No hydrocephalus. -MRI results above - I spoke with Dr. Thapa from neurology over the phone. We discussed patient's symptoms, exam, family history, MRI. He thinks this is probably essential tremor which is exacerbated by albuterol nebs. He recommended not starting propranolol until patient's pneumonia has been treated, then consider propranolol vs primidone and f/u with neurology as an outpatient. Status: Acute (3) UTI (urinary tract infection): Problem details: -UA collected from 03/02. UC growing > 100,000 E coli pansensitive. Initially treated with Augmentin and azithromycin along with pneumonia. Currently on Rocephin and doxycycline. Asymptomatic. Status: Acute (4) Hypokalemia: Problem details: -continue with oral supplement, monitoring - magnesium wnl Status: Acute (5) BARRIE (acute kidney injury): Problem details: -1.15 in 05/25 -pre-renal -serum osmolality 288, Urine osmolality 403, chloride 30 -creatinine 2.6 on admission, with hydration improved to 1.3. BUN 63 on admission, improved to 29 - Stop IVF, continue to hold diuretics for today and reassess tomorrow. 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 all on hold. Status: Chronic (11) Diarrhea: Problem details: - Cdiff negative, likely due to antibiotics. Start probiotic Status: Acute (12) Adrenal nodule: Problem details: 03/06/24 CT: 1.3 centimeter left adrenal nodule measuring 13 HU. Consider outpatient adrenal protocol CT for further characterization. Status: Acute (13) Hypocalcemia: Problem details: may be contributing to weakness and tremor. Replace IV, recheck in am. Status: Acute Time Spent With Patient Total time spent: Today I spent 35 minutes rounding on the patient. Greater than 50% included discussing care with the patient and her daughter, Neurology, team, reviewing data, updating and managing the care plan. Subjective Date Seen: 03/06/24 Interval history: Magali tells me she feels worse today. She feels weaker and like her abdomen and chest are filling up. She called her daughter, Tino, while I was in the room. Patient's daughter, Tino, reported head tremor has been going on since July, started out mild and has been getting worse. We discussed pneumonia, renal failure, head tremor, vibratory pep, weakness, diarrhea, hypokalemia, dehydration, and fluid overload. MRI was pending when we spoke. They were understanding that I would discuss the MRI results with them in the morning unless there was something urgent/emergent. Exam Narrative: Exam Narrative: General: No acute distress. Awake, alert, oriented x3. No pallor. No jaundice. Head tremor noted. Oropharynx: Clear. Mucous membranes moist. Cardiovascular: Regular rate and rhythm. No murmurs, gallops, or rubs. Respiratory: Clear to auscultation bilaterally. No wheezes or crackles. Abdomen: Bowel sounds present. Soft, nondistended, nontender. Extremities: No pedal edema. No cogwheel rigidity or motor retardation noted. Const: Vital Signs, click to edit/add: Vital Signs - 24 hr 03/05/24 15:00 03/05/24 15:00 03/05/24 15:00 Temperature 97.7 F Pulse Rate 90 Pulse Rate [Pulse Oximeter] 93 93 Respiratory Rate 22 22 Blood Pressure [Ri ght Arm] 119/74 Pulse Oximetry 92 Oxygen Delivery Me thod Room Air 03/05/24 16:40 03/05/24 19:22 03/05/24 22:38 Temperature 98.4 F 98.6 F Pulse Rate Pulse Rate [Pulse Oximeter] 97 95 Respiratory Rate 18 18 Blood Pressure [Ri ght Arm] 116/81 116/87 Pulse Oximetry 92 96 94 Oxygen Delivery Me thod Room Air Room Air 03/05/24 22:43 03/05/24 23:07 03/05/24 23:08 Temperature 98.6 F Pulse Rate 100 Pulse Rate [Pulse Oximeter] 95 Respiratory Rate 18 Blood Pressure [Ri ght Arm] Pulse Oximetry Oxygen Delivery Me thod 03/06/24 02:18 03/06/24 08:09 03/06/24 08:11 Temperature 98.4 F 97.7 F Pulse Rate Pulse Rate [Pulse Oximeter] 106 H 92 92 Respiratory Rate 18 18 18 Blood Pressure [Ri ght Arm] 104/50 L 121/82 Pulse Oximetry 93 96 Oxygen Delivery Me thod Room Air Room Air 03/06/24 10:41 03/06/24 11:11 Temperature 98.0 F Pulse Rate 90 Pulse Rate [Pulse Oximeter] 95 Respiratory Rate 20 Blood Pressure [Ri ght Arm] 124/81 Pulse Oximetry 92 Oxygen Delivery Me thod Room Air Labs Labs: Laboratory Results - last 24 hr 03/06/24 03/06/24 06:09 08:39 WBC 7.77 RBC 3.78 L Hgb 11.6 L Hct 33.1 MCV 88 MCH 31 MCHC 35 Plt Count 64 L Sodium 136 Potassium 2.9 L* Chloride 112 Carbon Dioxide 17 L Anion Gap 7 BUN 29 Creatinine 1.3 Estimated Creat Clear 38.07 Estimated GFR 47 Glucose 152 H Calcium 7.9 L Magnesium 2.2 Total Bilirubin 0.3 Direct Bilirubin 0.3 AST 62 H ALT 42 H Alkaline Phosphatase 60 Total Protein 5.2 L Albumin 2.9 L Lab Acknowledgement Test Added Ordering Physician: Marlene EMNDEZ Date of Service: 03/06/24 Procedure(s): MR head/brain wo con Accession Number(s): [id number] cc: Marlene MENDEZ; Provider,Not a Local~ For Patients: As a result of the Cures Act, medical imaging exams and procedure reports are released immediately into your electronic medical record. You may view this report before your referring provider. If you have questions, please contact your health care provider. INDICATION: Slurred speech. Tremors. TECHNIQUE: Brain MRI without contrast. COMPARISON: Head CT from 03/05/2024. FINDINGS: No evidence of acute ischemia. No evidence of acute or chronic intracranial blood products. Patchy FLAIR hyperintensities within the supratentorial white matter and brainstem, typical for chronic microvascular ischemic change. No mass effect or herniation. No hydrocephalus or extra-axial collections. The pituitary gland, parasellar structures and optic chiasm are normal. Posterior fossa is normal. All the major intracranial vascular structures demonstrate normal flow-related signal. The orbital contents are normal. No calvarial or skull base marrow replacing process. No obstructive sinus disease. No extracranial soft tissue findings. IMPRESSION: 1. No acute infarction or other acute intracranial pathology. 2. Mild chronic microvascular ischemic changes. Dictated by Stanislav Johnson MD @ 03/06/2024 12:37:55 PM (Electronically Signed)
[2024-03-06] MEDS: POTASSIUM BICARB 25 MEQ EFFERVESCENT TAB PO ×3 (15:58→18:50)
[2024-03-06] MEDS: CALCIUM GLUC 1,000MG/50 ML 1,000 MG/50 ML BAG 100 MG IVPB ×2 (15:59→17:15)
[2024-03-06] MEDS: LACTOBACILLUS ACIDOPHILUS 1 TABLET 2 TAB PO (17:20)
--- NOTE | 2024-03-06 18:14 | PC.NURSE ---
End of Shift: Patient pleasant and cooperative, A&O. VSS, afebrile. SpO2 maintained above 90% on RA this shift. Patient seems to have been coughing more today, encouraged use of aerobika and incentive spirometer. Continuing nebs. Patient reported pain in her abdomen this shift, managed with PRN medication, see MAR. Tolerating regular diet. 1800 fluid restriction. Up to bathroom with 1A, walker and gait belt.
[2024-03-06] MEDS: ZOLPIDEM 5 MG TABLET 10 MG PO (20:58)
[2024-03-07] VITALS (10 sets, daily range): BP systolic 124–143; BP diastolic 75–92; PULSE 87–120; RESP 18–22; TEMP 36.5–36.9; O2SAT 90–94
[2024-03-07] MEDS: IPRAT-ALBUT 0.5-2.5 MG/3 ML NEB 1 NEB IH ×4 (00:05→18:21)
[2024-03-07] MEDS: OMEPRAZOLE 20 MG CAPSULE DR PO (06:02)
[2024-03-07] MEDS: BUDESONIDE 0.5 MG/2ML NEB NEB ×2 (06:20→18:38)
[2024-03-07 06:36] LABS: Ionized Calcium* 1.17 mmol/L (1.11-1.30)
[2024-03-07 06:47] LABS: Hematocrit 32.5 % (33.0-51.0); Hemoglobin* 11.5 gm/dL (12.0-16.0); Mean Corpuscular HGB Conc 35 gm/dL (32-36); Mean Corpuscular Hemoglobin 31 pg (26-34); Mean Corpuscular Volume 87 fL (80-100); Platelet Count* 83 K/uL (140-440); Red Blood Count 3.75 m/uL (4.00-5.20); White Blood Count* 12.66 K/uL (4.50-11.00)
--- NOTE | 2024-03-07 07:01 | PC.NURSE ---
End of shift note [id number]: Pt alert & oriented x 4 though has not been using call light appropriately despite repeated reminders from staff. Pt continent of bowel and bladder. Pt slightly tachycardic with pulses of 103 and 105 with 1900 and [address] with sinus tachycardia noted. She has been afebrile throughout the shift and has been completing IS and Aerobika. Pt transfers/ambulates with assist of 1 using walker and gait belt.
[2024-03-07 07:15] LABS: Slide Review Reflex No
[2024-03-07] MEDS: predniSONE 20 MG TABLET 60 MG PO (07:54)
[2024-03-07] MEDS: LACTOBACILLUS ACIDOPHILUS 1 TABLET 2 TAB PO ×3 (07:54→18:21)
[2024-03-07] MEDS: POTASSIUM CHLORIDE 10 MEQ CAPSULE ER 20 MEQ PO ×2 (07:54→18:21)
[2024-03-07] MEDS: cefTRIAXone 1 GM in 0.9 % SODIUM CHLORIDE Mini-bag 100 ML IVPB (08:46)
[2024-03-07] MEDS: ASPIRIN 81 MG TABLET EC PO (08:46)
[2024-03-07] MEDS: DOXYCYCLINE HYCLATE 100 MG PO ×2 (08:46→21:11)
[2024-03-07] MEDS: SODIUM CHLORIDE 0.9 % (FLUSH) 10 ML SYRINGE 5 ML IVF ×2 (08:47→21:12)
[2024-03-07 09:00] LABS: Anion Gap 8 mEq/L (7-15); Blood Urea Nitrogen* 22 mg/dL (7-30); Carbon Dioxide* 24 mmol/L (20-32); Chloride* 106 mmol/L (96-114); Creatinine* 1.1 mg/dL (0.5-1.5); Est. Creatinine Clearance* 44.99; Estimated Glomerular Filt Rate 58 ml/min; Potassium* 3.6 mmol/L (3.6-5.1); Sodium* 138 mmol/L (135-149)
[2024-03-07 09:01] LABS: Alanine Aminotransferase* 39 U/L (4-35); Albumin* 3.1 g/dL (3.3-5.0); Alkaline Phosphatase* 60 U/L (40-150); Aspartate Amino Transferase* 53 U/L (12-35); Bilirubin Direct* 0.4 mg/dL (0.0-0.5); Bilirubin Total* 0.4 mg/dL (0.1-1.5); Glucose* 118 mg/dL (60-115); Total Protein* 5.4 g/dL (6.0-8.3)
--- NOTE | 2024-03-07 11:05 | CRLHL7_ITS ---
For Patients: As a result of the Cures Act, medical imaging exams and procedure reports are released immediately into your electronic medical record. You may view this report before your referring provider. If you have questions, please contact your health care provider. INDICATION: Shortness of breath. Tachycardia. Tachypnea. Elevated D-dimer. Chest heaviness. TECHNIQUE: Multiple axial images were obtained from the apices to the diaphragm per the pulmonary artery embolism protocol after administration of 95 mL of Isovue-370 intravenously. Sagittal and coronal re-formatted images were obtained. COMPARISON: Chest CT done 03/04/2024. FINDINGS: There is new diffuse patchy areas of ground-glass opacities in the lungs bilaterally. There is no pleural effusion. There is no axillary, mediastinal or hilar adenopathy. There is no pulmonary artery embolism seen. There are degenerative changes in the spine. IMPRESSION: No pulmonary artery embolism seen. New diffuse patchy areas of ground-glass opacities in the lungs bilaterally consistent with infectious process. A COVID-19 infection could be a possibility. Please note that all CT scans at this facility use dose modulation, iterative reconstruction, and/or weight-based dosing when appropriate to reduce radiation dose to as low as reasonably achievable. Dictated by Alex Martines MD @ 03/07/2024 1:10:33 PM (Electronically Signed)
--- NOTE | 2024-03-07 11:21 | RESP.RT ---
Pt seen per provider request. BBS with coarse Rhonchi and exp wheezing. Fair aeration. SPO2 92% on RA. EKG done. A/P Suggested doing Q2 alb neb x2 monitor HR, to see if that opens airways. PT with harsh RESTORATIVE COORDINATOR cough at this time.
[2024-03-07] MEDS: ACETAMINOPHEN 325 MG TABLET PO (11:58)
[2024-03-07 12:33] LABS: Fecal Occult Blood* Positive (Negative)
[2024-03-07] MEDS: ALBUTEROL SULFATE 2.5 MG/3 ML VIAL.NEB NEB (13:45)
--- NOTE | 2024-03-07 15:17 | PC.NURSE ---
End of Shift: Patient pleasant and cooperative, A&O. VSS, afebrile. SpO2 maintained above 90% on room air. Encouraged use of incentive spirometer and aerobika this shift. Patient reports pain in her abdomen today, managed with PRN medication, see MAR. She did have one small BM this shift. Patient reports her buttocks have a rash, barrier cream applied. 1A walker, gait belt to bathroom.
--- NOTE | 2024-03-07 15:43 | PM.IMPN1 ---
Progress Note: A&P Assessment and plan (1) Atypical pneumonia: Problem details: -on 03/02/24 pt started on Augmentin and azithromycin -saw Dr. Mai on 03/04 - rx'd for cipro sent (pt did not fern picker) -03/04/24 -Rocephin 1 gram QD and doxy 100mg BID -reviewed imaging: atypical findings -prednisone 60mg daily (previously has been on 1 mg daily for plantar fasciitis) -Resp PCR panel sent to [facility] - remains pending -Lyme panel negative -strep pneumo/legionella negative -blood culture no growth, lactate normalized, procalcitonin trending down still >3, CRP trending down, recheck in am -03/06 WBC wnl, afebrile for over 24 hours -MRSA negative -not hypoxic, continue nebs, aerobika, incentive spirometer, monitor; not hypotensive - 03/07 I have reviewed her chart and notes that she has tachycardia, leukocytosis, thrombocytopenia, markedly elevated D-dimer on admission, elevated liver function tests, and a bilateral pneumonia. This picture is concerning for viral pneumonia, specifically this pattern is usually seen in COVID pneumonia. Due to her feeling worse and not any better yet, I have obtained a CT chest. I did this with contrast also to rule out PE since she had an elevated D-dimer on admission but was unable to get contrast at that time due to BARRIE. The results are above and are concerning for possibility of COVID pneumonia, although it is notable that she tested negative for COVID on admission. Will repeat COVID test. - I also note that she is improved improving with regards to platelets, lacked relates, CRP, LFTs, and she is afebrile. Continue rocephin, doxycycline, prednisone Status: Acute (2) Alteration in neurological status: Problem details: - reports difficulty word finding, occasional intermittent slurring words over past week. Tremor of head x1 month - CT head shows involutional changes worsened since prior study in 2010, no acute appearing findings. Uckq-nz-imhsjguy cortical atrophy and there is mild to moderate white matter disease. No hydrocephalus. -MRI results above - 03/[address] Thapa from neurology over the phone. We discussed patient's symptoms, exam, family history, MRI. He thinks this is probably essential tremor which is exacerbated by albuterol nebs. He recommended not starting propranolol until patient's pneumonia has been treated, then consider propranolol vs primidone and f/u with neurology as an outpatient. Status: Acute (3) UTI (urinary tract infection): Problem details: -UA collected from 03/02. UC growing > 100,000 E coli pansensitive. Initially treated with Augmentin and azithromycin along with pneumonia. Currently on Rocephin and doxycycline, day 3. Asymptomatic. Status: Acute (4) Hypokalemia: Problem details: -continue with oral supplement, monitoring - magnesium wnl Status: Acute (5) BARRIE (acute kidney injury): Problem details: -1.15 in 05/25 -pre-renal -serum osmolality 288, Urine osmolality 403, chloride 30 -creatinine 2.6 on admission, with hydration improved to 1.3. BUN 63 on admission, improved to 29 - Stop IVF, continue to hold diuretics for today and reassess tomorrow. - 03/07 Cr 1.1, back to baseline. Status: Resolved (6) Thrombocytopenia: Problem details: -trend, platelets improving, now up to 83. 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 Improving -CAP no acute abdominal findings -trend labs - trending down, bili total and direct 0.5 Status: Acute (9) Smoker: Problem details: 1pack/2weeks Continue to encourage pulmonary hygiene Status: Chronic (10) Essential hypertension: Problem details: chlorthalidone, lisinopril, metoprolol. all on hold. Status: Chronic (11) Diarrhea: Problem details: - Cdiff negative, likely due to antibiotics. Started probiotic. Likely also secondary to melena. Status: Acute (12) Adrenal nodule: Problem details: 03/06/24 CT: 1.3 centimeter left adrenal nodule measuring 13 HU. Consider outpatient adrenal protocol CT for further characterization. Status: Acute (13) Hypocalcemia: Problem details: Resolved Status: Resolved (14) Melena: Problem details: - patient notes h/o ulcers at anastomotic site in duodenum. Will need EGD, but is not medically stable for this due to severity or respiratory illness. - monitor daily hemoglobin. May need transfer for scope if hematemesis, hematochezia, or worsening anemia. Status: Acute (15) Chest heaviness: Problem details: EKG and troponin are unremarkable. CTA as above. I think having this is likely secondary to respiratory illness. I have asked RT to come in see her and will adjust nebulizers. Status: Acute Time Spent With Patient Total time spent: Today I spent 50 minutes rounding on the patient. Greater than 50% included discussing care with the patient and her family, team, reviewing data, updating and managing the care plan. Subjective Time Seen by Provider: 10:20 Date Seen: 03/07/24 Interval history: I saw Magali on 3 separate occasions today. The 1st occasion Magali and her daughter, Tino, were in the room and her grandson was on the phone. On the 2nd occasion her and Tino were in the room with her. And on the 3rd occasion only her daughter was in the room with her. Magali complaints of still feeling worse. We talked about how her labs are mostly getting better, but she knows that she is feeling worse. She says she is having chest and abdominal pressure in it feels like they are a little bugs in her abdomen that are chewing at her bowels. This feeling comes and goes. Also she complains of black loose stool this morning. 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 I gave them the results of the MRI and told them about my discussion with the neurologist and recommendations for outpatient follow-up with Neurology. We also discussed that she could establish with a primary care provider who could give her medication for essential tremor once her pneumonia has resolved to see if it works prior to going to Neurology. Exam Narrative: Exam Narrative: General: No acute distress. Awake, alert, oriented x3. No pallor. No jaundice. Head tremor noted. Oropharynx: Clear. Mucous membranes moist. Cardiovascular: Regular rate and rhythm. No murmurs, gallops, rubs. Respiratory: Tight, expiratory wheezes throughout, rhonchorous. Abdomen: Bowel sounds present. Soft, nondistended, nontender. Const: Vital Signs, click to edit/add: Vital Signs - 24 hr 03/06/24 16:30 03/06/24 19:26 03/06/24 23:00 Temperature 97.7 F 97.7 F Pulse Rate Pulse Rate [Pulse Oximeter] 105 H 103 H Respiratory Rate 20 20 Blood Pressure [Le ft Arm] 130/79 140/93 H Pulse Oximetry 96 94 96 Oxygen Delivery Me thod Room Air Room Air 03/06/24 23:00 03/06/24 23:36 03/07/24 02:46 Temperature 97.7 F Pulse Rate 103 H Pulse Rate [Pulse Oximeter] 103 H 88 Respiratory Rate 20 18 Blood Pressure [Le ft Arm] 124/91 H Pulse Oximetry 91 Oxygen Delivery Tn thod Room Air 03/07/24 07:00 03/07/24 07:00 03/07/24 07:30 Temperature 97.9 F Pulse Rate 120 H Pulse Rate [Pulse Oximeter] 116 H 116 H Respiratory Rate 22 22 Blood Pressure [Le ft Arm] 142/82 H Pulse Oximetry 94 Oxygen Delivery Tn thod Room Air 03/07/24 11:00 Temperature 98.1 F Pulse Rate Pulse Rate [Pulse Oximeter] 106 H Respiratory Rate 20 Blood Pressure [Le ft Arm] 127/75 Pulse Oximetry 90 Oxygen Delivery Tn thod Room Air Labs Labs: Laboratory Results - last 24 hr 03/07/24 03/07/24 03/07/24 05:37 11:10 12:20 WBC 12.66 H RBC 3.75 L Hgb 11.5 L Hct 32.5 L MCV 87 MCH 31 MCHC 35 Plt Count 83 L Sodium 138 Potassium 3.6 Chloride 106 Carbon Dioxide 24 Anion Gap 8 BUN 22 Creatinine 1.1 Estimated Creat Clear 44.99 Estimated GFR 58 Glucose 118 H Calcium 9.0 Ionized Calcium Joceline 1.17 Total Bilirubin 0.4 Direct Bilirubin 0.4 AST 53 H ALT 39 H Alkaline Phosphatase 60 C-Reactive Protein 6.0 H Total Protein 5.4 L Albumin 3.1 L Stool Occult Blood Positive A POC Troponin I 0.00 L 03/07/2024 EKG: Sinus tachycardia, heart rate 120 beats per minute, nonspecific ST wave abnormality. Ordering Physician: Nadia Baron M.D. Date of Service: 03/07/24 Procedure(s): CT angio chest PE protocol Accession Number(s): [id number] cc: Nadia Baron M.D.; Provider,Not a Local~ For Patients: As a result of the Century Cures Act, medical imaging exams and procedure reports are released immediately into your electronic medical record. You may view this report before your referring provider. If you have questions, please contact your health care provider. INDICATION: Shortness of breath. Tachycardia. Tachypnea. Elevated D-dimer. Chest heaviness. TECHNIQUE: Multiple axial images were obtained from the apices to the diaphragm per the pulmonary artery embolism protocol after administration of 95 mL of Isovue-370 intravenously. Sagittal and coronal re-formatted images were obtained. COMPARISON: Chest CT done 03/04/2024. FINDINGS: There is new diffuse patchy areas of ground-glass opacities in the lungs bilaterally. There is no pleural effusion. There is no axillary, mediastinal or hilar adenopathy. There is no pulmonary artery embolism seen. There are degenerative changes in the spine. IMPRESSION: No pulmonary artery embolism seen. New diffuse patchy areas of ground-glass opacities in the lungs bilaterally consistent with infectious process. A COVID-19 infection could be a possibility. Please note that all CT scans at this facility use dose modulation, iterative reconstruction, and/or weight-based dosing when appropriate to reduce radiation dose to as low as reasonably achievable. Dictated by Alex Martines MD @ 03/07/2024 1:10:33 PM (Electronically Signed)
[2024-03-07 16:34] LABS: PCR FLU A Negative PCR FLU A (Negative); PCR FLU B Negative PCR FLU B (Negative); PCR RSV Negative PCR RSV (Negative); SARS PCR* Negative SARS-CoV-2 (Negative)
[2024-03-07 20:43] LABS: Procalcitonin* 0.83 ng/mL (<0.50)
[2024-03-07] MEDS: ZOLPIDEM 5 MG TABLET 10 MG PO (21:12)
[2024-03-08] VITALS (10 sets, daily range): BP systolic 115–156; BP diastolic 66–108; PULSE 76–106; RESP 20; TEMP 36.7; O2SAT 85–95
[2024-03-08] MEDS: ALBUTEROL INHALER 2 PUFF IH (03:16)
[2024-03-08] MEDS: ACETAMINOPHEN 325 MG TABLET PO (05:31)
[2024-03-08] MEDS: IPRAT-ALBUT 0.5-2.5 MG/3 ML NEB 1 NEB IH ×4 (05:32→17:51)
[2024-03-08] MEDS: OMEPRAZOLE 20 MG CAPSULE DR PO (06:12)
[2024-03-08] MEDS: BUDESONIDE 0.5 MG/2ML NEB NEB ×2 (06:12→18:47)
--- NOTE | 2024-03-08 06:23 | PC.NURSE ---
End of shift note [id number]: Pt has been denying pain when asked. She remains on telemetry with NSR noted though pt has also been tachycardic at times throughout the shift which is not a new finding. Pt has been afebrile this shift. She transfers/ambulates with assist of 1 using walker and gait belt. Bed alarm continues to be utilized as pt often does not use call light appropriately. She has been continent of bowel and bladder with stool sample sent to lab this morning per order. Director Of Video Analytics had to start pt on Oxygen via NC at 2 LPM due to O2 sat of 85% on RA after IS completed, deep breathing completed and PRN inhaler provided. O2 sat 90% on 2 LPM. Pt noted to have audible inspiratory and expiratory wheezing also heard upon auscultation with slightly productive cough. Oxygen has since been weaned to 1 LPM due to noting O2 sat of 96% on 2 LPM after completing first neb this morning. No loose stool noted this shift as stool was soft in consistency.
[2024-03-08 07:05] LABS: Ionized Calcium* 1.12 mmol/L (1.11-1.30)
[2024-03-08 07:19] LABS: Albumin* 2.9 g/dL (3.3-5.0); Hematocrit 31.3 % (33.0-51.0); Mean Corpuscular HGB Conc 35 gm/dL (32-36); Mean Corpuscular Hemoglobin 31 pg (26-34); Mean Corpuscular Volume 87 fL (80-100); Platelet Count* 130 K/uL (140-440); Red Blood Count 3.58 m/uL (4.00-5.20); White Blood Count* 13.66 K/uL (4.50-11.00)
[2024-03-08 07:20] LABS: Chloride* 103 mmol/L (96-114); Potassium* 3.4 mmol/L (3.6-5.1); Sodium* 137 mmol/L (135-149)
[2024-03-08 07:22] LABS: Alkaline Phosphatase* 67 U/L (40-150); Anion Gap 6 mEq/L (7-15); Aspartate Amino Transferase* 71 U/L (12-35); Bilirubin Direct* 0.4 mg/dL (0.0-0.5); Bilirubin Total* 0.4 mg/dL (0.1-1.5); Blood Urea Nitrogen* 18 mg/dL (7-30); Carbon Dioxide* 28 mmol/L (20-32); Creatinine* 1.1 mg/dL (0.5-1.5); Est. Creatinine Clearance* 44.99; Estimated Glomerular Filt Rate 58 ml/min; Glucose* 85 mg/dL (60-115); Total Protein* 5.1 g/dL (6.0-8.3)
[2024-03-08 07:23] LABS: Alanine Aminotransferase* 51 U/L (4-35); Calcium* 8.8 mg/dL (8.4-10.6)
[2024-03-08 07:42] LABS: Slide Review Reflex No
[2024-03-08] MEDS: LACTOBACILLUS ACIDOPHILUS 1 TABLET 2 TAB PO ×3 (07:54→17:51)
[2024-03-08] MEDS: predniSONE 20 MG TABLET 60 MG PO (07:55)
[2024-03-08] MEDS: POTASSIUM CHLORIDE 10 MEQ CAPSULE ER 20 MEQ PO ×2 (07:55→17:51)
--- NOTE | 2024-03-08 09:16 | CRLHL7_ITS ---
For Patients: As a result of the Century Cures Act, medical imaging exams and procedure reports are released immediately into your electronic medical record. You may view this report before your referring provider. If you have questions, please contact your health care provider. INDICATION: Elevated liver function tests. Right upper quadrant pain. TECHNIQUE: Ultrasound abdomen limited. COMPARISON: CT chest abdomen pelvis March 04, 2024. FINDINGS: Gallbladder: No stones. Minimal sludge. Normal wall thickness. No pericholecystic fluid. No sign of cholecystitis. Common bile duct: 10 mm. Dilatation of the common bile duct is nonspecific. No stone or mass visualized. Dictated by Jeremiah Parry MD @ 03/08/2024 11:16:03 AM (Electronically Signed)
[2024-03-08] MEDS: cefTRIAXone 1 GM in 0.9 % SODIUM CHLORIDE Mini-bag 100 ML IVPB (09:26)
[2024-03-08] MEDS: DOXYCYCLINE HYCLATE 100 MG PO (09:26)
[2024-03-08] MEDS: SODIUM CHLORIDE 0.9 % (FLUSH) 10 ML SYRINGE 5 ML IVF (09:26)
[2024-03-08 09:47] LABS: Lipase* 92 U/L (23-300)
--- NOTE | 2024-03-08 11:45 | RESP.RT ---
Pt seems about the same as yesterday with Respiratory status. Diffuse coarse expiratory wheezing. N ot responding as well to bronchodilator as they did in the ED upon presentation. Pt now using low flow oxygen to maintains a saturation greater than 90%. RR 18. Consider a pulmonology or I and D consult.l
--- NOTE | 2024-03-08 11:47 | RESP.RT ---
Additionally, spoke with pt about vaping and marijuana use, she denies. Asked about any unusual exposure to chemicals, irritants, smoke etc. At this time she says she can't think of anything.
[2024-03-08] MEDS: POTASSIUM BICARB 25 MEQ EFFERVESCENT TAB PO (12:54)
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
--- NOTE | 2024-03-08 15:32 | PC.NURSE ---
End of Shift: Patient pleasant and cooperative, A&O. VSS, afebrile. SpO2 maintained above 90% on 1L O2 via nasal cannula. Encouraged use of incentive spirometer and aerobika. Tolerating regular diet.
[2024-03-08] MEDS: LORazepam 0.5 MG TABLET PO (17:51)
--- NOTE | 2024-03-08 19:53 | PC.NURSE ---
DISCHARGE NOTE: Pt transferred to higher level of care for Infectious Disease and Pulmonology consults. Pt VSS on 1L O2 PNC. Anxious about transferring to [facility], PRN Ativan given per MD order. Pt up 1 assist walker, tolerated well. Tele NSR. Report given to Heather at [facility] @ 1806, pt signed consent form and all questions answered. EMS came to pick pt up via stretcher and transferred @ 1918 to [facility]. Pt signed belongings form and all belongings sent with pt.
[2024-03-10 14:05] LABS: Hep A Ab, IgM Negative (Negative); Hep B Core Ab, IgM Negative (Negative); Hep B Surface Antigen Negative (Negative); Hep C Ab by CIA Index <0.02 IV; Hep C Ab by CIA Interp Negative (Negative)
== END 2024-03-08 19:18 | disposition short-term general hospital (02) | DRG 139 ==
LOC: ED 15:45 → MEDSURG 16:08
PROVIDERS: Family Medicine; Physician Assistant; Admitting Provider Family Medicine; Emergency Provider Emergency Medicine; Visit Provider Family Medicine
DX: J18.9 Pneumonia, unspecified organism (principal); N17.9 Acute kidney failure, unspecified; N39.0 Urinary tract infection, site not specified; B96.20 Unspecified Escherichia coli [E. coli] as the cause of diseases classified elsewhere; E22.2 Syndrome of inappropriate secretion of antidiuretic hormone; K92.1 Melena; D62 Acute posthemorrhagic anemia; D69.6 Thrombocytopenia, unspecified; I10 Essential (primary) hypertension; R74.01 Elevation of levels of liver transaminase levels; R25.1 Tremor, unspecified; E87.6 Hypokalemia; M72.2 Plantar fascial fibromatosis; Z79.52 Long term (current) use of systemic steroids; G89.29 Other chronic pain; M79.7 Fibromyalgia; F51.04 Psychophysiologic insomnia; F17.210 Nicotine dependence, cigarettes, uncomplicated; G31.9 Degenerative disease of nervous system, unspecified; R47.81 Slurred speech; R47.89 Other speech disturbances; E83.51 Hypocalcemia; R19.7 Diarrhea, unspecified; E27.9 Disorder of adrenal gland, unspecified; R07.89 Other chest pain; R00.0 Tachycardia, unspecified; R09.02 Hypoxemia
CPT/HCPCS: 36415; 70450; 70551; 71045; 71250; 71275; 74176; 76705; 80048; 80069; 80074; 80076; 81001; 82270; 82330; 82436; 82570; 82803; 83605; 83690; 83735; 83880; 83930; 83935; 84133; 84145; 84300; 84439; 84443; 84484; 85025; 85027; 85379; 85610; 85730; 86140; 86615; 86618; 87040; 87081; 87086; 87186; 87329; 87449; 87493; 87631; 87632; 87899; 93005; 93970; 94640; 94664; 94761; 97110; 97112; 97116; 97162; 97166; 97530; 97535; 99284; 99285; A9270; J0613; J0696; J3480; J7030; J7512; J7626; Q9967

== ENCOUNTER 2024-03-08 19:12 | Outpatient (CLI) | payer BC, SELFPAY | END 2024-03-08 19:13 | disposition home or self-care (01) | PROVIDERS: Visit Provider Emergency Medicine | DX: J18.9 Pneumonia, unspecified organism (principal) | CPT/HCPCS: A0425; A0427 ==